=== PATIENT | male | born 1985 | race Caucasian/White ===

== ENCOUNTER 2018-10-23 11:07 | Day surgery (SDC) | payer SELFPAY ==
[2018-10-23 11:32] VITALS: BP 114/67; PULSE 70; RESP 16; TEMP 36.9; O2SAT 100; BMI 23.6
[2018-10-23 11:58] LABS: Amphetamine Urine VISTA NEGATIVE (<1000 ng/mL); Barbiturate Urine VISTA NEGATIVE (< 200 ng/mL); Benzodiazepine Urine VISTA NEGATIVE (< 200 ng/mL); Cocaine Urine VISTA NEGATIVE (< 300 ng/mL); Ecstacy Urine VISTA NEGATIVE (< 500 ng/mL); Methadone Urine VISTA NEGATIVE (< 300 ng/mL); PCP Urine VISTA NEGATIVE (< 25 ng/mL); THC Urine VISTA NEGATIVE (< 50 ng/mL); Vista UDS pH Range 7
[2018-10-23] MEDS: Cefazolin 2 GM in 0.9% Normal Saline 100 ML IV (12:18)
--- NOTE | 2018-10-23 12:20 | RAD_ITS ---
STUDY: X-RAY - RIGHT FOOT CLINICAL: Male, 33 years old. Fifth metatarsal fracture TECHNIQUE: 9 intraoperative view(s) of the foot. COMPARISON: Right foot, October 05, 2018. FINDINGS: Provided images demonstrate realignment of the fifth metatarsal fracture with placement of metallic plate and screws. Please refer to the operative report for further details. RAD/Foot min 3 Views IMPRESSION: Internal fixation of a fifth metatarsal fracture in the OR. Electronically Signed: Edmar Chauhan DO at 20:28 EST Tel [phone], Service support ,
[2018-10-23] MEDS: Bupivacaine Mpf 0.5% 30 ML VIAL (14:22)
[2018-10-23 14:55] VITALS: BP 107/64; BP 114/67; PULSE 63; RESP 18; TEMP 36.6; O2SAT 98
--- NOTE | 2018-10-23 14:59 | RAD_ITS ---
STUDY: X-RAY - RIGHT FOOT CLINICAL: Male, 33 years old. Postop TECHNIQUE: 3 view(s) of the foot. COMPARISON: October 05, 2018 right foot x-ray FINDINGS: There is a side plate and cortical screws transfixing the fifth metatarsal. The patient is in a splint. RAD/Foot min 3 Views IMPRESSION: Status post open reduction internal fixation of the fracture of the fifth metatarsal. Electronically Signed: Emy De La Torre MD at 15:55 EST Tel , Service support ,
[2018-10-23 15:00] VITALS: BP 103/68; BP 114/67; PULSE 99; RESP 18; O2SAT 100
--- NOTE | 2018-10-23 15:01 | PCM.IMDPSTOP ---
Immediate Post-Op Note Date of Procedure: 10/23/18 Primary Surgeon/Physician: Briana Wade DPM ice resurfacing machine operators: Sultana Pinzon Pre-Operative Diagnosis: R fifth metatarsal shaft fracture, displaced Post-Operative Diagnosis: same Surgery/Procedure Performed:: R 5th metatarsal ORIF Description of Surgical Findings:: see dictation Estimated Blood Loss: min Specimen's removed: none Type of Anesthesia:: General, Supplemental - Admit VTE Documentation VTE Present on Admission: No VTE Mechan Device Prophylaxis: SCD's, Knee High ANGELICA Hose VTE Pharm Prophylaxis ordered?: Yes
--- NOTE | 2018-10-23 15:02 | PCM.DC.ORTHO ---
Discharge Activity: May not drive while taking narcotic pain medications., May Not Shower, Use Walker, Use Crutches, - - wheelchair Weight Bearing Status: No weight bearing Keep extremity elevated above heart level: Operative Extremity Call your doctor if your incision/area has: Sudden Increased Bleeding Call your doctor if you observe: Fever of 101 or Higher, Shortness of breath, Chest pain, Increased palpitations (irregular heartbeat), Calf discomfort, Uncontrolled pain Cleanse incision/area with: Keep Dressing Clean & Dry Allergies/Adverse Reactions: Allergies No Known Allergies Allergy (Verified 10/17/18 09:01) Medications to take at Discharge Aspirin 325 mg PO DAILY@0800 #30 tab 10/23/18 Doxycycline Hyclate 100 mg PO BID 14 Days #28 tab 10/23/18 Hydrocodone Bitart/Apap 5-325 [[place] 5MG-325MG] 1 tab PO Q4H PRN PRN 7 Days #28 tab 10/23/18 The following prescriptions were given: Hydrocodone Bitart/Apap 5-325 [[place] 5MG-325MG] 1 tab PO Q4H PRN PRN 7 Days #28 tab PRN Reason: Pain Aspirin 325 mg PO DAILY@0800 #30 tab Doxycycline Hyclate 100 mg PO BID 14 Days #28 tab Primary Care Physician: Care Physician,No Primary [Primary Care Provider] - Test Results: Test results from this visit will be discussed in further detail at your follow-up appointment, if applicable. Please Follow Up With: Briana Wade DPM - Please follow up at your previously schedule post operative appointment in one week. Please Follow Up With: Aamir Payne - Pt complained of hand pain and can schedule an appointment with another provider for this same day as post operative appointment. Proposed Discharge Date: 10/23/18
--- NOTE | 2018-10-23 15:07 | DCINST_ITS ---
Discharge Activity: May not drive while taking narcotic pain medications., May Not Shower, Use Walker, Use Crutches, - - wheelchair Weight Bearing Status: No weight bearing Keep extremity elevated above heart level: Operative Extremity Call your doctor if your incision/area has: Sudden Increased Bleeding Call your doctor if you observe: Fever of 101 or Higher, Shortness of breath, Chest pain, Increased palpitations (irregular heartbeat), Calf discomfort, Unc ontrolled pain Cleanse incision/area with: Keep Dressing Clean & Dry Allergies/Adverse Reactions: Allergies No Known Allergies Allergy (Verified 10/17/18 09:01) Medications to take at Discharge Aspirin 325 mg PO DAILY@0800 #30 tab 10/23/18 Doxycycline Hyclate 100 mg PO BID 14 Days #28 tab 10/23/18 Hydrocodone Bitart/Apap 5-325 [[place] 5MG-325MG] 1 tab PO Q4H PRN PRN 7 Days #28 tab 10/23/18 The following prescriptions were given: Hydrocodone Bitart/Apap 5-325 [[place] 5MG-325MG] 1 tab PO Q4H PRN PRN 7 Days #28 tab PRN Reason: Pain Aspirin 325 mg PO DAILY@0800 #30 tab Doxycycline Hyclate 100 mg PO BID 14 Days #28 tab Primary Care Physician: Care Physician,No Primary [Primary Care Provider] - Test Results: Test results from this visit will be discussed in further detail at your follow- up appointment, if applicable. Please Follow Up With: Briana Wade DPM - Please follow up at your previously schedule post operative appointment in one week. Please Follow Up With: Aamir Payne - Pt complained of hand pain and can schedule an appointment with another provider for this same day as post operative appointment. Proposed Discharge Date: 10/23/18
[2018-10-23 15:14] VITALS: BP 104/49; BP 114/67; PULSE 73; RESP 18; TEMP 36.1; O2SAT 100
[2018-10-23 16:05] VITALS: BP 104/51; BP 114/67; PULSE 80; RESP 18; TEMP 36.2; O2SAT 100
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
--- OUTSIDE RECORDS SUMMARY | 2018-12-05 02:50 | XMS RPT_ITS ---
:1985 Author Organization [facility] Care Team Providers Name Role Phone UNKNOWN, PROVIDER Attending Unavailable PROVIDER, UNKNOWN Referring Unavailable No, PCP Primary Care Unavailable PROVIDER, UNKNOWN Referring Unavailable No, PCP Primary Care Unavailable Denisse Howard Attending Unavailable DEBBY MONTESINOS Attending Unavailable DEBBY MONTESINOS Referring Unavailable Primay Care Physicia, No Primary Care Unavailable DEBBY MONTESINOS Attending Unavailable DEBBY MONTESINOS Referring Unavailable Primay Care Physicia, No Primary Care Unavailable Briana Wade Attending Unavailable Primay Care Physicia, No Primary Care Unavailable Briana Wade Referring Unavailable PROBLEMS PROBLEMS DATE TYPE CONDITION / CODE ATTENDING STATUS SOURCE 10/23/2018 Unknown G89.18 - Other acute Briana Wade Active [place] [facility] / G89.18(ICD-10) Hospital Repository 11/27/2017 Admitting Unsp fracture of Unknown Active [facility] Diagnosis navicular bone of System left wrist, init / Repository S62.002A(ICD-10) 11/27/2017 Admitting Nicotine dependence, Unknown Active [facility] Diagnosis unspecified, System uncomplicated / Repository F17.200(ICD-10) 11/27/2017 Admitting Unspecified fall, Unknown Active [facility] Diagnosis initial encounter / System W19.XXXA(ICD-10) Repository 11/27/2017 Admitting Pain in left hand / Unknown Active [facility] Diagnosis M79.642(ICD-10) System Repository PROCEDURES PROCEDURES No Procedure Records FoundRESULTS RESULTS OPERATIVE REPORT Observed: 10/24/2018 Status: F Source: [place] 5:54 PM [facility] REPOSITORY [facility] Medical Records Department [address] [place] [address] Operative Report 10/24/18 1735 MR#: [id number] Acct: [id number] Name: NIHARIKA PLATA Rep #: [id number] : 1985 33 From: Briana Wade DPM PCP: Care Physician, No Primary Status: DEP [facility] [place] Location[place] [facility] Report of Operation Date of Procedure: 10/23/18 Pre-Operative Diagnosis: R fifth metatarsal shaft fracture, displaced Post-Operative Diagnosis: same Surgery/Procedure Performed:: R 5th metatarsal ORIF Description of Surgical Findings:: see dictation vessel specialist: Sultana Pinzon Type of Anesthesia:: General, Supplemental Specimen's removed: none Drains: none Estimated Blood Loss (mL): min Description of Procedure: Indications: Pt is a 33 yo M who presented to my office on 10/10/2018 for a R 5th metatarsal shaft fracture, displaced. 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 He is currently at [facility] and is in custody with a [facility] deputy today. He presents today for surgical intervention. All risks, complications, and alternatives were discussed with the patient, and the patient signed an informed consent. No guarantees were given. Procedure: On date, name name was visually and verbally identified in the preoperative holding area. The consent form was again reviewed with the patient, as were all risks, complications, and alternatives and the patient wished to proceed with the proposed surgery. Given the patient's recent use of methamphetamine I did obtain a pre- operative UDS which was negative. The right foot was marked as the correct operative extremity. Lead apron was placed on the operating room table for the patient's safety. The patient was brought to the operating room and placed on the operating room table in the normal [SUPINE position. Pt was placed under anesthesia with an LMA. A surgical time out was performed and all present were in agreement. a pneumatic thigh tourniquet was then placed. At this time the right lower extremity was prepped and draped in the usual sterile fashion. after exsanguination with an esmarch the tourniquet was inflated to 300 mmHg. At this time attention was directed to the right lateral midfoot. Using intraoperative fluoroscopy the fracture was again visiualized. Using a #15 blade a linear incision was made lateral the to the 5th metatarsal shaft. The incision was bluntly carried deep through the subcutaneous tissues with careful attention paid to all bleeders, which were clamped and tied or bovied as necessary. All vital neurovascular structures were retracted. The fracture was directly visualized and noted to have mild callus formation as it has been 3 weeks since injury. Retraction of the 5th digit was done in effort to aid in reduction of the fracture. Once i was happy with the reduction a bone reduction clamp was placed. Good reduction was confirmed on intraoperative fluoroscopy as well as direct visualization. A k wire was placed from proximal plantar lateral to distal dorsal medial in a perpendicular fashion to the fracture. This was done under intraoperative fluoroscopy. The intention was to place a cannulated screw with this wire however this wire snapped while drilling. The retained k wire was in a position that would help maintain the reduction so I left it. Under intraoperative fluoroscopic guidance i then placed a nearly parallel screw to this retained k wire after drilling. The screw had good purchase. The bone reduction clamp was removed and the reduction was maintained. This was confirmed by intraoperative fluoroscopy. The length of the fracture allowed for a second perpendicular screw. Again a kwire was placed for a cannulated screw however it again snapped during drilling. I again threw a screw parallel to the retained kwire with good compression. An attempt was made to throw a third interfragmentary screw but the k wire again snapped and was maintained with the bone. I then felt a stabilization plate would be best. A straight plate was then sized and placed on the dorsal fifth metatarsal shaft. Positioning and length were confirmed on intraoperative fluoroscopy. A series of locking and nonlocking screws were used to fixate the plate per AO technique. Final plate position and screw lengths were confirmed via intraoperative fluoroscopy. At this time the incision was flushed with copious amounts of normal sterile saline and closure was initiated. 2.0 vicryl was used for deep tissue, 3.0 vicryl for subcutaneous tissue and 3.0 prolene for skin. 30 cc of 0.5% marcain plain was injection as an ankle block and at the incision. Adaptic and sdry sterile dressing were placed. A well padded SLC plaster cast was then applied. Total tourniquet time was 105 minutes with immediate capillary refill noted to all digits upon deflation. Intra operative fluoroscopy was utilized throughout the case, > 1 hour, to aid in visualization and confirmation of fracture reduction and screw and plate fixations. Interpretation of the images was vital to my decision making process. The patient tolerated the procedure and anesthesia well. The patient was then transported to the postanesthesia care unit by a member of the anesthesia team and myself with all vital signs stable and neurovascular status of the right lower extremity equal to pre-operative levels. At the end of the case all sponge, needle and instrument counts were found to be correct. Pt will follow up with me as an outpatient and remain NWB RLE. Grafts/Implants Used: Nalini Variax plate and screws - Complications none - Admit VTE Documentation VTE Present on Admission: No VTE Pharm Prophylaxis ordered?: Yes 10/24/18 1754 <Electronically signed by Briana Wade DPM> Date Briana Wade DPM CC: MANISH Wade; No Primary Care Physician Signed DISCHARGE INSTRUCTION Observed: 10/23/2018 Status: F Source: [place] 3:09 PM [facility] REPOSITORY [facility] Medical Records Department [address] [place] [address] Instructions for Home/Discharge Instructions 10/23/18 1502 MR#: [id number] Acct: [id number] Name: SHERLYNNIHARIKA M Rep #: [id number] : 1985 33 From: Briana Wade DPM PCP: Care Physician, No Primary Status: REG [facility] Discharge Activity: May not drive while taking narcotic pain medications., May Not Shower, Use Walker, Use Crutches, - - wheelchair Weight Bearing Status: No weight bearing Keep extremity elevated above heart level: Operative Extremity Call your doctor if your incision/area has: Sudden Increased Bleeding Call your doctor if you observe: Fever of 101 or Higher, Shortness of breath, Chest pain, Increased palpitations (irregular heartbeat), Calf discomfort, Uncontrolled pain Cleanse incision/area with: Keep Dressing Clean AND Dry Allergies/Adverse Reactions: Allergies No Known Allergies Allergy (Verified 10/17/18 09:01) Medications to take at Discharge Aspirin 325 mg PO DAILY@0800 #30 tab 10/23/18 Doxycycline Hyclate 100 mg PO BID 14 Days #28 tab 10/23/18 Hydrocodone Bitart/Apap 5-325 [Sterling 5MG-325MG] 1 tab PO Q4H PRN PRN 7 Days #28 tab 10/23/18 The following prescriptions were given: Hydrocodone Bitart/Apap 5-325 [Sterling 5MG-325MG] 1 tab PO Q4H PRN PRN 7 Days #28 tab PRN Reason: Pain Aspirin 325 mg PO DAILY@0800 #30 tab Doxycycline Hyclate 100 mg PO BID 14 Days #28 tab Primary Care Physician: Care Physician,No Primary [Primary Care Provider] - Test Results: Test results from this visit will be discussed in further detail at your follow-up appointment, if applicable. Please Follow Up With: Briana Wade DPM - Please follow up at your previously schedule post operative appointment in one week. Please Follow Up With: [facility] - Pt complained of hand pain and can schedule an appointment with another provider for this same day as post operative appointment. Proposed Discharge Date: 10/23/18 10/23/18 1509 <Electronically signed by Briana Wade DPM> Date Briana Wade DPM CC: No Primary Care Physician FOOT MIN 3 VIEWS Observed: 10/23/2018 Status: F Source: [place] 2:59 PM [facility] REPOSITORY [facility] Imaging Services [address] [place] [address] Foot min 3 Views MR#: [id number] Acct: [id number] Name: NIHARIKA PLATA Rep #: [id number] : 1985 M 33 From: Emy De La Torre MD PCP: Care Physician, No Primary Status: REG [facility] Study: Foot min 3 Views Date of Exam: 10/23/18 Exam# [id number] Ordering Dr: Briana Wade DPM STUDY: X-RAY - RIGHT FOOT CLINICAL: Male, 33 years old. Postop TECHNIQUE: 3 view(s) of the foot. COMPARISON: October 05, 2018 right foot x-ray FINDINGS: There is a side plate and cortical screws transfixing the fifth metatarsal. The patient is in a splint. RAD/Foot min 3 Views IMPRESSION: Status post open reduction internal fixation of the fracture of the fifth metatarsal. Electronically Signed: Emy De La Torre MD at 15:55 EST Tel , Service support , CC: MANISH Wade; No Primary Care Physician Municipal Clerk: Signed URINE DRUG SCREEN Collected: 10/23/2018 Status: F Source: [place] (VISTA) 11:40 AM [facility] REPOSITORY Order Comment: Comments: Please obtain upon arrival to pre op, TYPE CODE TESTS RESULT OUT OF RANGE REFERENCE UNITS LAB L505.0075 TO BE Normal CONFIRMED Result Comment: CONFIRMATORY TESTING FOR ALL POSITIVE URINE DRUG SCREEN RESULTS WILL ONLY BE SENT OUT UPON PHYSICIAN ORDER. VISTA Urine Drug Screen methods provide only preliminary analytical test results. A more specific alternate chemical method must be used in order to obtain a confirmed analytical result. Gas chromatography/mass spectrometery (GC/MS) is the preferred confirmatory method. Clinical consideration and professional judgement should be applied to any drug of abuse test result, particularly when preliminary positive results are used. URINE TCA TESTING MUST BE ORDERED SEPARATELY. USE TEST MNEMONIC: [facility] LAB L505.5005 VISTA UDS PH 7 Normal LAB L505.5015 <1000 ng/mL AMPHETAMINES Normal NEGATIVE LAB L505.5025 < 200 ng/mL BARBITIURATES Normal NEGATIVE LAB L505.5035 < 200 ng/mL BENZODIAZIPINE Normal NEGATIVE LAB L505.5045 < 300 ng/mL COCAINE Normal NEGATIVE LAB L505.5055 < 500 ng/mL ECSTACY Normal NEGATIVE LAB L505.5065 < 300 ng/mL METHADONE Normal NEGATIVE LAB L505.5075 < 300 ng/mL OPIATES Normal NEGATIVE LAB L505.5085 < 25 ng/mL PCP Normal NEGATIVE LAB L505.5095 < 50 ng/mL THC Normal NEGATIVE Performed By: #### L505.5000 #### [facility] [address] [facility] [place], [address] FOOT MIN 3 VIEWS Observed: 10/23/2018 Status: F Source: [place] 12:09 AM [facility] REPOSITORY [facility] Imaging Services [address] [place] [address] Foot min 3 Views MR#: [id number] Acct: [id number] Name: NIHARIKA PLATA Rep #: [id number] : 1985 M 33 From: Edmar Chauhan DO PCP: Care Physician, No Primary Status: [facility] Study: Foot min 3 Views Date of Exam: 10/23/18 Exam# [id number] Ordering Dr: Briana Wade DPM STUDY: X-RAY - RIGHT FOOT CLINICAL: Male, 33 years old. Fifth metatarsal fracture TECHNIQUE: 9 intraoperative view(s) of the foot. COMPARISON: Right foot, October 05, 2018. FINDINGS: Provided images demonstrate realignment of the fifth metatarsal fracture with placement of metallic plate and screws. Please refer to the operative report for further details. RAD/Foot min 3 Views IMPRESSION: Internal fixation of a fifth metatarsal fracture in the OR. Electronically Signed: Edmar Chauhan DO at 20:28 EST Tel [phone], Service support , CC: MANISH Wade; No Primary Care Physician Municipal Clerk: Signed FOOT MIN 3 VIEWS Observed: 10/05/2018 Status: F Source: [place] 9:00 AM [facility] REPOSITORY [facility] Imaging Services [address] [place] [address] Foot min 3 Views MR#: [id number] Acct: [id number] Name: NIHARIKA PLATA Rep #: [id number] : 1985 M 32 From: Bobo Jacobo MD PCP: Care Physician, No Primary Status: REG REF Study: Foot min 3 Views Date of Exam: 10/05/18 Exam# [id number] Ordering Dr: CARL CLEARY STUDY: X-RAY - RIGHT FOOT CLINICAL: Male, 32 years old. Pain and swelling following a fall. TECHNIQUE: 3 view(s) of the foot. COMPARISON: None. FINDINGS: Normal talus, calcaneus, and tarsal bones. Normal visualized subtalar, talonavicular, calcaneocuboid, tarsal and tarsometatarsal articulations. Nondisplaced oblique fracture of the midportion of the fifth metatarsal. Normal metatarsophalangeal joint of the great toe. Normal tibial and fibular sesamoid bones. Normal interphalangeal joint of the great toe. Normal phalanges of the great toe. Normal second through fifth metatarsophalangeal joints. Normal interphalangeal joints and phalanges of the lesser toes. Soft tissue swelling. RAD/Foot min 3 Views IMPRESSION: Nondisplaced oblique fracture of the midportion of the fifth metatarsal with overlying soft tissue swelling. Electronically Signed: Bobo Jacobo MD at 9:36 EST Tel [phone], Service support , CC: No Primary Care Physician; CARL CLEARY Municipal Clerk: Signed CR HAND COMPLETE 3+ Observed: 11/27/2017 Status: F Source: [facility] VIEWS LEFT 5:51 PM SYSTEM REPOSITORY Patient Name: NIHARIKA PLATA Diagnostic Radiology Exam Date/Time 11/27/2017 17:50:30 EST Exam CR Hand Complete 3+ Views Left Ordering Physician FORTUNATO FOSTER, ADEEL Rivera Accession Number [id number] CPT4 Codes 03712 () Reason For Exam fall, pain Report LEFT HAND: Indication: 32-year-old; pain; fall. Views: AP, Lateral, and oblique Comparison: None. FINDINGS AND IMPRESSION: There is a small avulsion fracture of the scaphoid bone. The bone mineralization is normal. The carpal row alignment is unremarkable. Report Dictated on Final Dictating Physician: MD AGUILAR JENNIFER R Signed Date and Time: 11/27/2017 5:52 pm Signed by: MD AGUILAR JENNIFER R Transcribed Date and Time: 11/27/2017 5:53 ALLERGIES ALLERGIES DATE TYPE / CODE NAME / CODE REACTION SEVERITY SOURCE 10/17/2018 Drug No Known Unknown [facility] Allergy/4160 Allergies/F00 [facility] [address]148(SNOMED 5978999(RXNOR Repository CT) M) ENCOUNTERS ENCOUNTERS ADMIT/DISCHARGE ACCOUNT NUMBER ADMITTING ENCOUNTER LOCATION SOURCE CLASS 10/23/2018/10/23/[id number] ding:SDCRoom Repository : AC11 10/05/2018 [id number] [facility] ding:RAD Repository 10/03/2018 [id number] [facility] ding:RAD Repository 03/19/2018 [id number] Ambulatory [facility] Repository 11/27/2017 [id number] Ambulatory [address] [place] [address] EDRoom: 2A System 444Bed: Repository [id number] PAYERS PAYERS ENCOUNTER GUARANTOR PAYER SUBSCRIBER SOURCE 10/23/2018 NIHARIKA M Primary NOT GIVENUNK [place] [id number] Insurance:SELF PAY Community [address] [facility] [address], [place] Number: Effective Repository [id number]: (330) Date:2018-10-15 [id number] (HP) 10/05/2018 NIHARIKA Primary NOT GIVENUNK [place] MILICIUNKNOWNWOO Insurance:SELF PAY [facility] [id number]: . (HP) Number: Effective Repository Date:2018-10-05 10/03/2018 NIHARIKA PLATA Primary NOT GIVENUNK [place] Insurance:SELF PAY [facility] Number: Effective Repository Date:2018-10-03 03/19/2018 Niharika MiliciDOB: Primary Niharika MiliciDOB: [email or web address] [id number] Insurance:CareSourceP [id number] [address] Number: Repository [address], [place] Effective Date: [id number]: () 11/27/2017 Niharika MiliciDOB: Primary Niharika MiliciDOB: [email or web address] [id number] Insurance:CareSourceP [id number] [address] Number: Repository [address], [place] Effective Date: [address]Tqf: (HP)
== END 2018-10-23 16:08 | disposition home or self-care (01) ==
LOC: SDC 11:07 → AC 11:09
PROVIDERS: Referring Provider Podiatrist Foot & Ankle Surgery; Visit Provider Podiatrist Foot & Ankle Surgery
PROC: (CPT 28485; principal; 2018-10-23 13:15)
DX: S92.351A Displaced fracture of fifth metatarsal bone, right foot, initial encounter for closed fracture (principal); X58.XXXA Exposure to other specified factors, initial encounter; Y93.02 Activity, running; I89.8 Other specified noninfective disorders of lymphatic vessels and lymph nodes; F15.90 Other stimulant use, unspecified, uncomplicated; Z87.891 Personal history of nicotine dependence
CPT/HCPCS: 01480; 28485; 73630; 76000; 80307; C1713; J7120

== ENCOUNTER → 2018-11-28 16:00 | Outpatient (CLI) | payer SELFPAY ==
[2018-11-28 18:42] LABS: Absolute Lymphocyte Count 2.15 X10^3/ul (0.83-4.51); Absolute Neutrophil Count 3.7 X10^3/uL (2.0-7.7); Basophil# 0.02 X10^3/uL; Basophil% 0.3 % (0-1); Eosinophil# 0.18 X10^3/uL; Eosinophils% 2.7 % (0-5); Hematocrit 40.9 % (40-54); Hemoglobin 13.6 g/dl (13.0-16.5); Lymphocyte # 2.15 X10^3/ul (4.0); Lymphocyte % 32.5 % (19-41); Mean Corp Hgb Conc 33.3 g/gl (32-36); Mean Corpuscular Hgb 31.3 pg (27.0-32.0); Mean Platelet Vol. 9.9 fl (6.2-12.0); Monocyte# 0.57 X10^3/uL; Monocyte% 8.6 % (0-10); Neutrophil # 3.69 X10^3/uL (2.7-7.7); Neutrophil % 55.7 % (47-70); Platelet Count 252 K/mm3 (150-450); RBC Distribution Width CV 12.7 % (11.6-14.6); RBC Distribution Width SD 43.2 fl (35.1-43.9); Red Blood Count 4.35 M/mm3 (4.6-6.2); White Blood Count 6.6 K/mm3 (4.4-11.0)
[2018-11-28 18:47] LABS: POSITIVE COUNT NO; POSITIVE DIFFERENTIAL NO; POSITIVE MORPHOLOGY NO
[2018-11-29 09:09] LABS: Erythrocyte Sedimentation Rate 5 mm/hr (0-15)
== END ==
DX: M86.9 Osteomyelitis, unspecified (principal)
CPT/HCPCS: 85025; 85652

== ENCOUNTER → 2018-11-29 15:16 | Outpatient (CLI) | payer SELFPAY ==
[2018-11-29 16:23] LABS: CRP < 2.90 mg/L (0.0-3.0)
== END ==
PROVIDERS: Referring Provider Podiatrist Foot & Ankle Surgery; Visit Provider Podiatrist Foot & Ankle Surgery
DX: S92.351G Displaced fracture of fifth metatarsal bone, right foot, subsequent encounter for fracture with delayed healing (principal)
CPT/HCPCS: 86140

== ENCOUNTER → 2018-12-12 15:03 | Outpatient (CLI) | payer SELFPAY ==
[2018-12-12 15:40] LABS: Absolute Lymphocyte Count 1.98 X10^3/ul (0.83-4.51); Absolute Neutrophil Count 2.9 X10^3/uL (2.0-7.7); Basophil# 0.03 X10^3/uL; Basophil% 0.5 % (0-1); Eosinophil# 0.16 X10^3/uL; Eosinophils% 2.8 % (0-5); Hematocrit 41.9 % (40-54); Hemoglobin 14.5 g/dl (13.0-16.5); Lymphocyte # 1.98 X10^3/ul (4.0); Lymphocyte % 34.3 % (19-41); Mean Corp Hgb Conc 34.6 g/gl (32-36); Mean Corpuscular Hgb 31.6 pg (27.0-32.0); Mean Corpuscular Volume 91.3 fL (80-94); Mean Platelet Vol. 10.8 fl (6.2-12.0); Monocyte# 0.71 X10^3/uL; Monocyte% 12.3 % (0-10); Neutrophil # 2.89 X10^3/uL (2.7-7.7); Neutrophil % 49.9 % (47-70); Platelet Count 265 K/mm3 (150-450); RBC Distribution Width CV 12.3 % (11.6-14.6); RBC Distribution Width SD 40.1 fl (35.1-43.9); Red Blood Count 4.59 M/mm3 (4.6-6.2); White Blood Count 5.8 K/mm3 (4.4-11.0)
[2018-12-12 15:43] LABS: POSITIVE COUNT NO; POSITIVE DIFFERENTIAL NO; POSITIVE MORPHOLOGY NO
[2018-12-12 16:01] LABS: CRP 4.21 mg/L (0.0-3.0)
[2018-12-12 16:09] LABS: Erythrocyte Sedimentation Rate 9 mm/hr (0-15)
--- OUTSIDE RECORDS SUMMARY | 2019-02-16 14:25 | XMS RPT_ITS ---
:1985 Author Organization [facility] Care Team Providers Name Role Phone PROVIDER, UNKNOWN Referring Unavailable No, PCP Primary Care Unavailable Denisse Howard Attending Unavailable DEBBY MONTESINOS Referring Unavailable Primay Care Physicia, No Primary Care Unavailable DEBBY MONTESINOS Attending Unavailable Briana Wade Attending Unavailable Briana Wade Referring Unavailable Primay Care Physicia, No Primary Care Unavailable DEBBY MONTESINOS Attending Unavailable DEBBY MONTESINOS Referring Unavailable Primay Care Physicia, No Primary Care Unavailable Briana Wade Attending Unavailable Briana Wade Referring Unavailable Primay Care Physicia, No Primary [...] TYPE CONDITION / CODE ATTENDING STATUS SOURCE 12/07/2018 Unknown M86.9 - DEBBY MONTESINOS Active [facility], Community unspecified / Hospital M86.9(ICD-10) Repository 10/23/2018 Unknown G89.18 - Other acute Briana Wade Active [place] postprocedural pain Community / G89.18(ICD-10) Hospital Repository PROCEDURES PROCEDURES No Procedure Records FoundRESULTS RESULTS ERYTHROCYTE SED RATE Collected: 12/21/2018 Status: F Source: ELAINE 1:55 PM [facility] REPOSITORY TYPE CODE TESTS RESULT OUT OF RANGE REFERENCE UNITS LAB L102.0000 0-15 mm/hr Normal SED RATE 2 Performed By: #### L101.9900, L100.0100 #### [facility] [address] [place] [address]. [place], [address] CBC W/DIFF, AUTOMATED Collected: 12/21/2018 Status: F Source: ELAINE 1:55 PM [facility] REPOSITORY TYPE CODE TESTS RESULT OUT OF RANGE REFERENCE UNITS LAB L100.1000 4.4-11.0 K/mm3 Normal WBC 5.9 LAB L100.1200 4.6-6.2 M/mm3 Low RBC 4.11 LAB L100.1300 13.0-16.5 g/dl Normal HGB 13.1 LAB L100.1400 40-54 % Low HCT 38.5 LAB L100.1500 80-94 fL Normal MCV 93.7 LAB L100.1600 27.0-32.0 pg Normal MCH 31.9 LAB L100.1700 32-36 g/gl Normal MCHC 34.0 LAB L100.1810 11.6-14.6 % Normal RDW CV 12.3 LAB L100.1820 35.1-43.9 fl Normal RDW SD 41.4 LAB L100.1900 150-450 K/mm3 Normal PLT 194 LAB L100.2000 6.2-12.0 fl Normal MPV 10.4 LAB L100.2100 47-70 % Normal NEUT% 55.1 LAB L100.2200 19-41 % Normal LY% 31.5 LAB L100.2300 0-10 % High MONO% 11.2 LAB L100.2400 0-5 % Normal EO% 1.9 LAB L100.2500 0-1 % Normal BASO% 0.3 LAB L100.2550 0.0-0.9 % Normal IM GRAN % 0.000 Result Comment: IG% - Immature Granulocytes (promyelocytes, myelocytes and metamyelocytes) > 1% indicates that a LEFT SHIFT is Present. LAB L100.2620 2.0-7.7 X10 3/uL Normal Absolute Neut 3.2 LAB L100.2720 0.83-4.51 X10 3/ul Normal Absolute Lymph 1.85 Performed By: #### L101.9900, L100.0100 #### [facility] [address] [place], [address] CBC W/DIFF, AUTOMATED Collected: 12/12/2018 Status: F Source: ELAINE 2:00 PM [facility] REPOSITORY TYPE CODE TESTS RESULT OUT OF RANGE REFERENCE UNITS LAB L100.1000 4.4-11.0 K/mm3 Normal WBC 5.8 LAB L100.1200 4.6-6.2 M/mm3 Low RBC 4.59 LAB L100.1300 13.0-16.5 g/dl Normal HGB 14.5 LAB L100.1400 40-54 % Normal HCT 41.9 LAB L100.1500 80-94 fL Normal MCV 91.3 LAB L100.1600 27.0-32.0 pg Normal MCH 31.6 LAB L100.1700 32-36 g/gl Normal MCHC 34.6 LAB L100.1810 11.6-14.6 % Normal RDW CV 12.3 LAB L100.1820 35.1-43.9 fl Normal RDW SD 40.1 LAB L100.1900 150-450 K/mm3 Normal PLT 265 LAB L100.2000 6.2-12.0 fl Normal MPV 10.8 LAB L100.2100 47-70 % Normal NEUT% 49.9 LAB L100.2200 19-41 % Normal LY% 34.3 LAB L100.2300 0-10 % High MONO% 12.3 LAB L100.2400 0-5 % Normal EO% 2.8 LAB L100.2500 0-1 % Normal BASO% 0.5 LAB L100.2550 0.0-0.9 % Normal IM GRAN % 0.200 Result Comment: IG% - Immature Granulocytes (promyelocytes, myelocytes and metamyelocytes) > 1% indicates that a LEFT SHIFT is Present. LAB L100.2620 2.0-7.7 X10 3/uL Normal Absolute Neut 2.9 LAB L100.2720 0.83-4.51 X10 3/ul Normal Absolute Lymph 1.98 Performed By: #### L100.0100, L101.9900 #### [facility] [address] [place], [place], [id number] ERYTHROCYTE SED RATE Collected: 12/12/2018 Status: F Source: ELAINE 2:00 PM [facility] REPOSITORY TYPE CODE TESTS RESULT OUT OF RANGE REFERENCE UNITS LAB L102.0000 0-15 mm/hr Normal SED RATE 9 Performed By: #### L100.0100, L101.9900 #### [facility] [address] [place], [place], [address] CRP Collected: 12/12/2018 Status: F Source: ELAINE 2:00 PM [facility] REPOSITORY TYPE CODE TESTS RESULT OUT OF RANGE REFERENCE UNITS LAB L501.6710 0.0-3.0 mg/L High 4.21 C-REACTIVE PROT Result Comment: C-Reactive Protein (CRP) provides useful information for the diagnosis, therapy and monitoring of inflammatory processes and associated diseases. For the evaluation of Relative Risk for Cardiovascular Disease, a High Sensitivity CRP (HSCRP) should be ordered. Performed By: #### L501.6710 #### [facility] [address] [place], [place], [address] CRP Collected: 11/29/2018 Status: F Source: ELAINE 3:36 PM [facility] REPOSITORY TYPE CODE TESTS RESULT OUT OF RANGE REFERENCE UNITS LAB L501.6710 0.0-3.0 mg/L Normal < 2.90 C-REACTIVE PROT Result Comment: C-Reactive Protein (CRP) provides useful information for the diagnosis, therapy and monitoring of inflammatory processes and associated diseases. For the evaluation of Relative Risk for Cardiovascular Disease, a High Sensitivity CRP (HSCRP) should be ordered. Performed By: #### L501.6710 #### [facility] [address] [place], [place], [address] CBC W/DIFF, AUTOMATED Collected: 11/28/2018 Status: F Source: AAMIR 2:30 PM [facility] REPOSITORY Order Comment: FAX RESULTS TO @[id number] TYPE CODE TESTS RESULT OUT OF RANGE REFERENCE UNITS LAB L100.1000 4.4-11.0 K/mm3 Normal WBC 6.6 LAB L100.1200 4.6-6.2 M/mm3 Low RBC 4.35 LAB L100.1300 13.0-16.5 g/dl Normal HGB 13.6 LAB L100.1400 40-54 % Normal HCT 40.9 LAB L100.1500 80-94 fL Normal MCV 94.0 LAB L100.1600 27.0-32.0 pg Normal MCH 31.3 LAB L100.1700 32-36 g/gl Normal MCHC 33.3 LAB L100.1810 11.6-14.6 % Normal RDW CV 12.7 LAB L100.1820 35.1-43.9 fl Normal RDW SD 43.2 LAB L100.1900 150-450 K/mm3 Normal PLT 252 LAB L100.2000 6.2-12.0 fl Normal MPV 9.9 LAB L100.2100 47-70 % Normal NEUT% 55.7 LAB L100.2200 19-41 % Normal LY% 32.5 LAB L100.2300 0-10 % Normal MONO% 8.6 LAB L100.2400 0-5 % Normal EO% 2.7 LAB L100.2500 0-1 % Normal BASO% 0.3 LAB L100.2550 0.0-0.9 % Normal IM GRAN % 0.200 Result Comment: IG% - Immature Granulocytes (promyelocytes, myelocytes and metamyelocytes) > 1% indicates that a LEFT SHIFT is Present. LAB L100.2620 2.0-7.7 X10 3/uL Normal Absolute Neut 3.7 LAB L100.2720 0.83-4.51 X10 3/ul Normal Absolute Lymph 2.15 Performed By: #### L100.0100, L101.9900 #### [facility] [address] [place], [address] ERYTHROCYTE SED RATE Collected: 11/28/2018 Status: F Source: ELAINE 2:30 PM [facility] REPOSITORY Order Comment: FAX RESULTS TO @[id number] TYPE CODE TESTS RESULT OUT OF RANGE REFERENCE UNITS LAB L102.0000 0-15 mm/hr Normal SED RATE 5 Performed By: #### L100.0100, L101.9900 #### [facility] [address] [place], [address] OPERATIVE REPORT Observed: 10/24/2018 Status: F Source: ELAINE 5:54 PM [facility] REPOSITORY [facility] Medical Records Department [address] [place] [address] Operative Report 10/24/18 1735 MR#: [id number] Acct: [id number] Name: NIHARIKA PLATA Kiah Rep #: [id number] : 1985 33 From: Briana Wade DPM PCP: Care Physician, No Primary Status: [facility] Y Location: 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 He presents today for surgical [...] outpatient and remain NWB RLE. Grafts/Implants Used: Nahma Variax plate and screws - Complications none - Admit VTE Documentation VTE Present on Admission: No VTE Pharm Prophylaxis ordered?: Yes 10/24/18 3559 <Electronically signed by Briana Wade DPM> Date Briana Wade DPM CC: MANISH Wade; No Primary Care Physician Signed DISCHARGE INSTRUCTION Observed: 10/23/2018 Status: F Source: ELAINE 3:09 PM [facility] REPOSITORY [facility] Medical Records Department [address] [place] [address] Instructions for Home/Discharge Instructions 10/23/18 1502 MR#: [id number] Acct: [id number] Name: NIHARIKA PLATA Rep #: [id number] : 1985 33 From: Briana Wade DPM PCP: Care Physician, No Primary Status: REG [facility] Discharge Activity: May not drive while taking [...] Days #28 tab 10/23/18 Hydrocodone Bitart/Apap 5-325 [[place] 5MG-325MG] 1 tab PO Q4H PRN PRN 7 Days #28 tab 10/23/18 The following prescriptions were given: Hydrocodone Bitart/Apap 5-325 [[place] 5MG-325MG] 1 tab PO Q4H PRN PRN [...] one week. Please Follow Up With: Aamir Payne - Pt complained of hand pain and can schedule an appointment with another provider for this same day as post operative appointment. Proposed Discharge Date: 10/23/18 10/23/18 1509 <Electronically signed by Briana Wade DPM> Date Briana Wade DPM CC: No Primary Care Physician FOOT MIN 3 VIEWS Observed: 10/23/2018 Status: F Source: AAMIR 2:59 PM [facility] REPOSITORY [facility] Imaging Services [address] [address] Foot min 3 Views MR#: [id number] Acct: [id number] Name: NIHARIKA PLATA Rep #: [id number] : 1985 M 33 From: Emy De La Torre MD PCP: Care Physician, No Primary Status: REG [facility] Study: Foot min 3 Views Date of Exam: 10/23/18 Exam# [id number] Ordering Dr: Briana Wade DPM STUDY: X-RAY [...] CC: MANISH Wade; No Primary Care Physician Mammography Tech: Signed URINE DRUG SCREEN Collected: 10/23/2018 Status: F Source: AAMIR (VISTA) 11:40 AM [facility] REPOSITORY Order Comment: Comments: Please obtain upon [...] Normal NEGATIVE Performed By: #### L505.5000 #### [facility] [address] [facility] [facility] [place], [address] FOOT MIN 3 VIEWS Observed: 10/23/2018 Status: F Source: ELAINE 12:09 AM [facility] REPOSITORY [facility] Imaging Services [address] [place] [address] Foot min 3 Views MR#: [id number] Acct: [id number] Name: NIHARIKA PLATA Kiah Rep #: [id number] : 1985 M 33 From: Edmar Chauhan DO PCP: Care Physician, No Primary Status: [facility] Study: Foot min 3 Views Date of Exam: 10/23/18 Exam# [id number] Ordering Dr: Briana Wade DPM STUDY: X-RAY [...] Edmar Chauhan DO at 20:28 EST Tel [phone], Service support , CC: MANISH Wade; No Primary Care Physician Mammography Tech: Signed FOOT MIN 3 VIEWS Observed: 10/05/2018 Status: F Source: ELAINE 9:00 AM [facility] REPOSITORY [facility] Imaging Services [facility] [place] [address] [place] [address] Foot min 3 Views MR#: [id number] Acct: [id number] Name: SHERLYNNIHARIKA Kiah Rep #: [id number] : 1985 32 From: Bobo Jacobo MD PCP: Care Physician, No Primary Status: REG REF Study: Foot min 3 Views Date of Exam: 10/05/18 Exam# [id number] Ordering Dr: CARL CLEARY STUDY: X-RAY - [...] Bobo Jacobo MD at 9:36 EST Tel [phone], Service support , CC: No Primary Care Physician; CARL CLEARY Mammography Tech: Signed ALLERGIES ALLERGIES DATE TYPE / CODE NAME / CODE REACTION SEVERITY SOURCE 10/17/2018 Drug No Known Unknown [facility] Allergy/4160 Allergies/F00 Hospital 55640(SNOMED 5474667(RXNOR Repository CT) M) ENCOUNTERS ENCOUNTERS ADMIT/DISCHARGE ACCOUNT NUMBER ADMITTING ENCOUNTER LOCATION SOURCE CLASS 12/21/2018 [id number] [facility] ding:LABSPEC Repository 12/12/2018 [id number] [facility] ding:LABSPEC Repository 11/29/2018 [id number] [facility] ding:LABSPEC Repository 11/28/2018 [id number] [facility] ding:LABSPEC Repository 10/23/2018/10/23/[id number] ding:SDCRoom Repository : AC11 10/05/2018 [id number] [facility] ding:RAD Repository 10/03/2018 [id number] [facility] ding:RAD Repository 03/19/2018 [id number] [facility] Repository PAYERS PAYERS ENCOUNTER GUARANTOR PAYER SUBSCRIBER SOURCE 12/21/2018 NIHARIKA Dupont Primary NOT GIVENUNK [place] [id number] Insurance:SELF PAY [address] Number: Effective Repository [phone]: 330) Date:2018-12-21 [phone] () 12/12/2018 NIHARIKA [place] Primary NOT GIVENUNK [place] [id number] Insurance:SELF PAY Community [address], [place] Number: Effective Repository [phone]: ([phone]) Date:2018-12-12 () 11/29/2018 NIHARIKA Dupont Primary NOT GIVENUNK [place] [id number] Insurance:SELF PAY Community [address] Number: Effective Repository [phone]: (330) Date:2018-11-29486 () 11/28/2018 NIHARIKA Dupont Primary NOT GIVENUNK [place] [id number] Insurance:SELF PAY Community [address], [place] Number: Effective Repository [phone]: ([phone]) Date:2018-11-28486 () 10/23/2018 NIHARIKA Dupont Primary NOT GIVENUNK [place] [id number] Insurance:SELF PAY Community [address] Number: Effective Repository [phone]: ([phone]) Date:2018-10-15486 () 10/05/2018 NIHARIKA Primary NOT GIVENUNK [place] [id number] Insurance:SELF PAY [facility] [id number]: . () Number: Effective Repository Date:2018-10-05 10/03/2018 NIHARIKA ELDRIDGEICI Primary NOT GIVENUNK [place] Insurance:SELF PAY [facility] Number: Effective Repository Date:2018-10-03 03/19/2018 Niharika MiliciDOB: [facility] [id number] Insurance:CareSourceP [id number] Number: Repository [address], [place] Effective Date: [address]Idr: ()
== END ==
DX: M86.9 Osteomyelitis, unspecified (principal)
CPT/HCPCS: 85025; 85652; 86140

== ENCOUNTER → 2018-12-21 14:43 | Outpatient (CLI) | payer SELFPAY ==
[2018-12-21 15:19] LABS: Erythrocyte Sedimentation Rate 2 mm/hr (0-15)
[2018-12-21 15:23] LABS: Absolute Lymphocyte Count 1.85 X10^3/ul (0.83-4.51); Absolute Neutrophil Count 3.2 X10^3/uL (2.0-7.7); Basophil# 0.02 X10^3/uL; Basophil% 0.3 % (0-1); Eosinophil# 0.11 X10^3/uL; Eosinophils% 1.9 % (0-5); Hematocrit 38.5 % (40-54); Hemoglobin 13.1 g/dl (13.0-16.5); Lymphocyte # 1.85 X10^3/ul (4.0); Lymphocyte % 31.5 % (19-41); Mean Corpuscular Hgb 31.9 pg (27.0-32.0); Mean Corpuscular Volume 93.7 fL (80-94); Mean Platelet Vol. 10.4 fl (6.2-12.0); Monocyte# 0.66 X10^3/uL; Monocyte% 11.2 % (0-10); Neutrophil # 3.24 X10^3/uL (2.7-7.7); Neutrophil % 55.1 % (47-70); Platelet Count 194 K/mm3 (150-450); RBC Distribution Width CV 12.3 % (11.6-14.6); RBC Distribution Width SD 41.4 fl (35.1-43.9); Red Blood Count 4.11 M/mm3 (4.6-6.2); White Blood Count 5.9 K/mm3 (4.4-11.0)
[2018-12-21 15:29] LABS: POSITIVE COUNT NO; POSITIVE DIFFERENTIAL NO; POSITIVE MORPHOLOGY NO
== END ==
PROVIDERS: Referring Provider Podiatrist Foot & Ankle Surgery; Visit Provider Podiatrist Foot & Ankle Surgery
DX: M86.9 Osteomyelitis, unspecified (principal)
CPT/HCPCS: 85025; 85652

== ENCOUNTER → 2019-01-08 14:40 | Outpatient (CLI) | payer SELFPAY ==
[2019-01-08 14:52] LABS: Erythrocyte Sedimentation Rate < 1 mm/hr (0-15)
[2019-01-08 14:54] LABS: Absolute Neutrophil Count 2.8 X10^3/uL (2.0-7.7); Basophil# 0.02 X10^3/uL; Basophil% 0.4 % (0-1); Eosinophil# 0.15 X10^3/uL; Eosinophils% 2.9 % (0-5); Hematocrit 35.4 % (40-54); Hemoglobin 12.3 g/dl (13.0-16.5); Lymphocyte % 31.4 % (19-41); Mean Corp Hgb Conc 34.7 g/gl (32-36); Mean Corpuscular Hgb 32.5 pg (27.0-32.0); Mean Corpuscular Volume 93.4 fL (80-94); Mean Platelet Vol. 10.6 fl (6.2-12.0); Monocyte# 0.56 X10^3/uL; Neutrophil # 2.75 X10^3/uL (2.7-7.7); Neutrophil % 54.1 % (47-70); Platelet Count 133 K/mm3 (150-450); RBC Distribution Width CV 12.4 % (11.6-14.6); RBC Distribution Width SD 40.9 fl (35.1-43.9); Red Blood Count 3.79 M/mm3 (4.6-6.2); White Blood Count 5.1 K/mm3 (4.4-11.0)
[2019-01-08 14:55] LABS: POSITIVE COUNT NO; POSITIVE DIFFERENTIAL NO; POSITIVE MORPHOLOGY NO
== END ==
PROVIDERS: Referring Provider Podiatrist Foot & Ankle Surgery; Visit Provider Podiatrist Foot & Ankle Surgery
DX: M86.9 Osteomyelitis, unspecified (principal)
CPT/HCPCS: 85025; 85652